=== PATIENT | female | born 1955 | race Caucasian/White ===

== ENCOUNTER 2020-09-01 08:02 | Day surgery (SDC) | payer MEDICARE, OTHER ==
[~2020-09-01] VITALS: Ht 157.5 cm; Wt 62.7 kg
[~2020-09-01 08:02] MED LIST: CALCIUM 600 +1 EA14 PO
--- NOTE | 2020-09-01 10:03 | NUR ---
09/01/20 [email or web address] Mary Espinoza 0959 PATIENT ARRIVES TO PACU SLEEPING. RESP EVEN AND UNLABORED, OXYGEN OFF ON ARRIVAL TO PACU, ROOM AIR SATS >95%.
--- NOTE | 2020-09-02 05:21 | OR ---
[facility] [address] [place], [place] [address] Signed DATE OF OPERATION: 09/01/2020 SURGEON: Felipa Lucero MD PREOPERATIVE DIAGNOSES: 1. Personal history of colorectal polyps. 2. Internal hemorrhoids and skin tags. 3. Improved chronic constipation. 4. History of melanosis coli. 5. Maternal aunts x2 with colon cancer in her 60s and 70s. 6. A son with significant polyp at age 47. POSTOPERATIVE DIAGNOSES: 1. 4 mm sessile polyps at 70 cm, cecum (clip), 100 cm x2 and 22 cm. 2. Internal anal skin tags x2. PROCEDURE: Colonoscopy with hot biopsy and clipping. ESTIMATED BLOOD LOSS: None. INDICATIONS: Jody is a 65-year-old female, asked to see me for followup colonoscopy. This represents her 4th colonoscopy. She has a history of multiple hyperplastic and adenomas polyps removed in the past. She is known to have small internal hemorrhoids with associated skin tags. For a while, she was under a lot of stress taking care of her ailing parents and was using laxatives for constipation. Her parents have . She said all the stress is gone and now her constipation is more or less gone. She currently takes no medication for the constipation. Both her maternal aunts developed colon cancer in their 60s or in to their 70s and her son was diagnosed with rather significant polyp at age 47. I gave her a pamphlet in the office on colonoscopy. We discussed the nature of the test along with the risks including, but not limited to gas bloating, crampy abdominal pain, bleeding, perforation requiring surgery, and missed diagnosis. She had expressed understanding and wished to proceed. PROCEDURE NOTE: Jody was taken into our endoscopy suite and placed in the left lateral decubitus position. She was given preoperative Zofran 4 mg IV x1 and Phenergan 12.5 mg IV x1. She explained that she had quite a bit of nausea and vomiting after sedation. We also Electronically Signed By: FELIPA LUCERO MD 09/02/20 0521 PATIENT NAME: CINDY HANDLEY OPERATIVE REPORT DATE OF : 53 REPORT #: [id number] PHYSICIAN: FELIPA LUCERO MD PCP: PB WHITFIELD MD REPORT IS CONFIDENTIAL AND NOT TO BE RELEASED WITHOUT AUTHORIZATION [facility] [address] [place], [place] [address] Signed gave 5 mg of Versed and 100 mcg of fentanyl to cover the case. A digital rectal exam was performed and this was unremarkable. I could feel the internal anal skin tags. She has good sphincter tone. The adult colonoscope was introduced and advanced all around into the cecum under direct visualization of the camera without difficulty. Her prep was quite excellent. We could easily see the appendiceal orifice and the ileocecal valve. We took pictures throughout for photodocumentation and the base of the cecum just opposite the ileocecal valve was 2 tiny polyps. There were easily removed with the help of hot biopsy forceps. There was just a little bleeding, so we placed a clip over that area with good hemostasis. The scope had been slowly withdrawn and the other polyps were also removed with the help of hot biopsy forceps as listed above. We could proceed with previously scar polypectomy sites. The rectum was unremarkable. Upon retroflexion of the scope, we can see at least 2 tiny internal anal skin tags. After this, the gas was suctioned out and the colonoscope removed. Jody tolerated the procedure quite well. RECOMMENDATIONS: I will see Jody back in my office in 7 to 14 days to review her results. I suspect she will stay on the 5-year plan. Felipa Lucero MD ALB/MODL /[id number] cc: MD Felipa Swan MD Chart Filed Incomplete Copies: PB WHITFIELD MD, ANDREW L MD Electronically Signed By: FELIPA LUCERO MD 09/02/20 0521 PATIENT NAME: CINDY HANDLEY OPERATIVE REPORT DATE OF : 53 REPORT #: [id number] PHYSICIAN: FELIPA LUCERO MD PCP: PB WHITFIELD MD REPORT IS CONFIDENTIAL AND NOT TO BE RELEASED WITHOUT AUTHORIZATION [address] [address] Signed CHART FILED INCOMPLETE ~ Electronically Signed By: FELIPA LUCERO MD 09/02/20 0521 PATIENT NAME: CINDY HANDLEY OPERATIVE REPORT DATE OF : 53 REPORT #: [id number] PHYSICIAN: FELIPA LUCERO MD PCP: PB WHITFIELD MD REPORT IS CONFIDENTIAL AND NOT TO BE RELEASED WITHOUT AUTHORIZATION
--- NOTE | 2020-09-04 12:46 | PATH ---
[facility] [address] [place], [place] [address] Signed SPECIMEN(S): A DESCENDING POLYP 70 CM SPECIMEN(S): B CECAL POLYP SPECIMEN(S): C COLON POLYP 100 CM SPECIMEN(S): D COLON POLYP 22 CM SPECIMEN SOURCE: A. DESCENDING POLYP 70 CM B. CECAL POLYP C. COLON POLYP 100 CM D. COLON POLYP 22 CM CLINICAL HISTORY: Colonoscopy. Family history of colon CA, skin tags, internal hemorrhoids, history of polyps, melanosis coli, chronic constipation. MICROSCOPIC DESCRIPTION: Histologic sections of all submitted blocks are examined by light microscopy. These findings, together with the gross examination, support the pathologic diagnosis. FINAL PATHOLOGIC DIAGNOSIS: A. Colon, descending polyp at 70 cm, polypectomy: - Fragments of tubular adenoma. - Negative for high-grade dysplasia or malignancy. B. Colon, cecum, polyp, polypectomy: - Fragments of tubular adenoma. - Negative for high-grade dysplasia or malignancy. C. Colon, polyp at 100 cm, polypectomy: - Fragments of tubular adenoma. - Negative for high-grade dysplasia or malignancy. D. Colon, polyp at 22 cm, polypectomy: - Hyperplastic polyp. - Negative for dysplasia or malignancy. NAL:cml:C2NR GROSS DESCRIPTION: Four specimens are received in four containers, labeled "EC." A. The specimen, labeled "EC, descending colon polyp at 70 cm," is received in formalin and consists of two jeronimo soft tissue fragments that measure 0.1-0.2 cm in greatest dimension. The specimen is entirely submitted in cassette (A1). B. The specimen, labeled "EC, cecum polyp," is received in formalin and PATIENT NAME: CINDY HANDLEY PATHOLOGY DATE OF : 53 REPORT #: [id number] PHYSICIAN: RODRIGUEZ PATHOLOGY PCP: PB WHITFIELD MD REPORT IS CONFIDENTIAL AND NOT TO BE RELEASED WITHOUT AUTHORIZATION [facility] [address] [place] [address] Signed consists of four jeronimo soft tissue fragments that measure 0.1-0.2 cm in greatest dimension. The specimen is entirely submitted in cassette (B1). C. The specimen, labeled "EC, colon polyp at 100 cm," is received in formalin and consists of three jeronimo soft tissue fragments that measure 0.1-0.2 cm in greatest dimension. The specimen is entirely submitted in cassette (C1). D. The specimen, labeled "EC, colon polyp at 22 cm," is received in formalin and consists of two jeronimo soft tissue fragments that measure 0.2 cm in greatest dimension. The specimen is entirely submitted in cassette (D1). JS (under the direct supervision of a pathologist) The Gross Description was prepared using a voice recognition system. The report was reviewed for accuracy; however, sound-alike word errors, addition and/or deletions may occur. If there is any question about this report, please contact Client Services. PERFORMING LABORATORY: The technical component was performed by [facility] [address] (Business Continuity Director: Luciana Bullock MD; CLIA# [id number]). [facility] [address] [address] (CLIA# [id number]). Diagnostician: Selina Patrick MD Pathologist Electronically Signed 09/04/2020 Copies: ~ PATIENT NAME: CINDY HANDLEY PATHOLOGY DATE OF : 53 REPORT #: [id number] PHYSICIAN: RODRIGUEZ SIMPSON PCP: PB WHITFIELD MD REPORT IS CONFIDENTIAL AND NOT TO BE RELEASED WITHOUT AUTHORIZATION
== END 2020-09-01 10:55 | disposition home or self-care (01) ==
LOC: OPS 08:02 → DS 08:02 → OPS 09:45
PROVIDERS: ATTEND Colon & Rectal Surgery
PROC: 0DBE8ZX Excision of Large Intestine, Via Natural or Artificial Opening Endoscopic, Diagnostic (ICD-10-PCS; 2020-09-01)
PROC: 0DBM8ZX Excision of Descending Colon, Via Natural or Artificial Opening Endoscopic, Diagnostic (ICD-10-PCS; 2020-09-01)
PROC: 0DBH8ZX Excision of Cecum, Via Natural or Artificial Opening Endoscopic, Diagnostic (ICD-10-PCS; principal; 2020-09-01 09:45)
DX: D12.0 Benign neoplasm of cecum (principal); D12.4 Benign neoplasm of descending colon; K64.4 Residual hemorrhoidal skin tags; K64.8 Other hemorrhoids; K59.00 Constipation, unspecified; K63.89 Other specified diseases of intestine; M81.0 Age-related osteoporosis without current pathological fracture; F17.210 Nicotine dependence, cigarettes, uncomplicated; Z87.19 Personal history of other diseases of the digestive system; Z80.0 Family history of malignant neoplasm of digestive organs; Z83.71 Family history of colonic polyps; Z86.010 Personal history of colon polyps; Z86.69 Personal history of other diseases of the nervous system and sense organs
CPT/HCPCS: 99153; G0500; J2250; J2405; J2550; J3010; J7121

== ENCOUNTER 2022-01-31 16:40 | Emergency (ER) | payer MEDICARE, OTHER ==
[~2022-01-31] VITALS: Ht 157.5 cm; Wt 65.8 kg
[2022-01-31] MEDS ORDERED: ZYRTEC10 MG PO (17:45)
[2022-01-31] MEDS ORDERED: PREDNISONE20 MG PO (17:45)
[2022-01-31] MEDS ORDERED: PEPCID20 MG PO (17:45)
[2022-01-31] MEDS ORDERED: EPIN0.3P IM (17:47)
--- NOTE | 2022-01-31 20:29 | EKG ---
[facility] [address] [facility] [place] [address] Signed Normal sinus rhythm with sinus arrhythmia Normal ECG No previous ECGs available Confirmed by JIMENA AARON MD ([id number]) on 01/31/2022 8:29:42 PM Electronically Signed By: JIMENA AARON MD 01/31/222028 PATIENT NAME: ENDERCINDY WILFRID Electrocardiogram DATE OF : 53 PHYSICIAN: JIMENA AARON MD REPORT #: [id number] REPORT IS CONFIDENTIAL AND NOT TO BE RELEASED WITHOUT AUTHORIZATION
== END 2022-01-31 18:05 | disposition home or self-care (01) ==
LOC: ED 16:40
DX: T63.441A Toxic effect of venom of bees, accidental (unintentional), initial encounter (principal); F17.200 Nicotine dependence, unspecified, uncomplicated
CPT/HCPCS: 71045; 93005; 93010; 96374; 96375; 99283-25; J1100

== ENCOUNTER 2024-05-10 05:35 | Day surgery (SDC) | payer MEDICARE, OTHER ==
[~2024-05-10] VITALS: Ht 154.9 cm; Wt 63.6 kg
[~2024-05-10 05:35] MED LIST changes: -CALCIUM 600 +1 EA14 PO; +CALCIUM 600 MG PO; +EPIN0.3P IM; +LACTATED RINGER'S 1,000 ML IV SCH; +PEPCID20 MG PO; +PREDNISONE20 MG PO; +VITAMIN C WIT1000 MG PO; +ZYRTEC10 MG PO
[2024-05-10 05:59] VITALS: BP 150/78
[2024-05-10] MEDS ORDERED: ondansetron HCL 4 MG/2 ML VIAL ONE (06:46)
[2024-05-10] MEDS ORDERED: LIDOCAINE HCL 0.5% 50 ML SDV ONE (06:46)
[2024-05-10] MEDS ORDERED: propofoL 200 MG/20 ML VIAL ONE ×2 (06:46→07:11)
[2024-05-10] MEDS ORDERED: fentaNYL citrate 100 MCG/2 ML VIAL ONE (06:47)
[2024-05-10] MEDS ORDERED: DEXAMETHASONE SOD PHOS 4 MG/ML VIAL ONE (06:47)
[2024-05-10] MEDS ORDERED: MIDAZOLAM HCL 2 MG/2 ML VIAL ONE (06:54)
[2024-05-10] MEDS ORDERED: HYDROCODONE/ACETA 5/325 TAB PO PRN (07:00)
[2024-05-10] MEDS ORDERED: LIDOCAINE HCL 1% 5 ML SDV INJ ONE (07:00)
[2024-05-10] MEDS ORDERED: CEFAZOLIN SODIUM 2 GM/20 ML SYR IV SCH (07:00)
[2024-05-10] MEDS ORDERED: IBLOOD GLUCOSE TEST STRIP 1 EA TEST VI PRN (07:00)
[2024-05-10] MEDS ORDERED: ACETAMINOPHEN 1,000 MG/100 ML VIAL ONE (07:04)
[2024-05-10] MEDS ORDERED: KETOROLAC TROMETHAMINE 30 MG/ML VIAL ONE (07:17)
[2024-05-10] MEDS ORDERED: HYDROCODON-ACE1 EA10 PO (07:22)
--- NOTE | 2024-05-10 07:53 | NUR ---
PT GONE FOR PROCEDURE. PROVIDED PRAYER.
--- NOTE | 2024-05-10 08:13 | NUR ---
05/10/24 0813 Greta Block 0725- PT ARRIVES TO PACU WITH EYES OPEN ON 6 L OF O2 VIA MASK AND BREATHING IS EVEN AND UNLABORED. PT DENIES PAIN AND NAUSEA. ABDOMEN IS SOFT AND NON DISTENDED. PT IS LAYING IS SEMI FOWLERS. LR INFUSING IN L HAND. ALL MONITORS PUT IN PLACE. VSS. CMS SHOWS SOME NUMBNESS AND UNABLE TO REACH THE PULSE DUE TO THE DRESSING.
[2024-05-10 08:14] VITALS: BP 99/65
--- NOTE | 2024-05-10 19:04 | OR ---
[facility] [address] [place], [place] [address] Signed DATE OF OPERATION: 05/10/2024 SURGEON: Tutu Caicedo MD PREOPERATIVE DIAGNOSIS: Trigger thumb, right. POSTOPERATIVE DIAGNOSIS: Trigger thumb, right. PROCEDURE PERFORMED: Right trigger thumb release. BLOW PIT HELPER: None. ANESTHESIA: [place] block. TOURNIQUET TIME: 20 minutes. BRIEF HISTORY: Cindy is a 69-year-old female with painful locking in her right thumb. Risks, benefits, and alternatives of surgery were discussed with her and she elected to proceed. PROCEDURE IN DETAIL: Once consent was obtained, she was taken to the operating room. After adequate anesthesia, she was left on the day surgery bed with a hand table. The arm was then prepped and draped in a standard sterile fashion after the [place] block was established. The thumb A1 ronnie was identified by palpation and was approached through a standard transverse incision in the crease. This was carried carefully through the skin and subcutaneous tissue under loupe magnification. The digital palmar nerve was then identified, retracted and protected. The flexor tendon sheath was then identified and the A1 ronnie was released using tenotomy scissors again under direct visualization. The patient was asked to move her thumb. She could fully flex and fully extend with no locking or triggering. The wound was copiously irrigated with antibiotic solution, closed with 3-0 nylon and infiltrated with 5 mL 0.25% plain Marcaine. The wound was then dressed with bacitracin, Adaptic, 4 x 8s, and gauze. She tolerated the procedure well. Electronically Signed By: TUTU CAICEDO MD 05/10/24 1904 PATIENT NAME: CINDY HANDLEY OPERATIVE REPORT DATE OF : 53 REPORT #: [id number] PHYSICIAN: TUTU CAICEDO MD PCP: RENITA GRIFFIN MD REPORT IS CONFIDENTIAL AND NOT TO BE RELEASED WITHOUT AUTHORIZATION [facility] [address] [facility] [place], [place] [address] Signed All sponge, needle, and instrument counts were correct. Tutu Caicedo MD BA/MODL /[id number] Copies: ~ Electronically Signed By: TUTU CAICEDO MD 05/10/24 1904 PATIENT NAME: CINDY HANDLEY OPERATIVE REPORT DATE OF : 53 REPORT #: [id number] PHYSICIAN: TUTU CAICEDO MD PCP: RENITA GRIFFIN MD REPORT IS CONFIDENTIAL AND NOT TO BE RELEASED WITHOUT AUTHORIZATION
== END 2024-05-10 08:10 | disposition home or self-care (01) ==
LOC: DS 05:35
PROVIDERS: ATTEND Specialist
PROC: 0LN70ZZ Release Right Hand Tendon, Open Approach (ICD-10-PCS; principal; 2024-05-10 07:00)
DX: M65.311 Trigger thumb, right thumb (principal); F17.200 Nicotine dependence, unspecified, uncomplicated; Z90.710 Acquired absence of both cervix and uterus; Z90.49 Acquired absence of other specified parts of digestive tract
CPT/HCPCS: 01810; J0131; J0690; J1100; J1885; J2250; J2405; J2704; J3010; J7121